=== PATIENT | female | born 1975 | race Caucasian/White ===

== ENCOUNTER 2024-07-10 09:13 | Emergency (ER) | payer BC, SELFPAY ==
[2024-07-10 09:34] VITALS: BP 176/116; PULSE 99; RESP 18; TEMP 36.6; O2SAT 98; BMI 28.2
[2024-07-10] MEDS: Tetracaine HCl/PF 0.5% Oph Sol 4 ML DROPS 1 DROP EYE-LEFT (10:15)
[2024-07-10] MEDS: Fluorescein Sodium STRIP 1 STRIP EYE-LEFT (10:15)
--- NOTE | 2024-07-10 10:15 | ED.EYEPROB ---
HPI - Eye Problem General Chief complaint: Eye Problems Stated complaint: left eye irritation Time Seen by Provider: 07/10/24 09:59 Source: patient Mode of arrival: ambulatory Limitations: no limitations History of Present Illness ED Provider: Diane Nazario PA-C HPI Narrative: 49 yo female presents to the ER for evaluation of left eye vision disturbances that started yesterday afternoon around 430pm. patient reports she was seeing what looked like a black string intermittently in various dominguez of her left eye vision when she moved her eye. it was not present when she looked forward. She took out her contact lens and it appears normal. no FB sensation. no trauma or injury. she was unable to get in with her eye doctor yesterday. she reports symptoms this morning are improved but still having some abnormalities with movement. she is wearing her glasses. no drainage, discharge or severe pain. MD chief complaint: vision change Onset (ago): hour(s) Onset description: sudden Duration: intermittent Location: left eye Eye Symptoms: decreased vision Place: home Mechanism: none Context: contact lens use Associated symptoms: headache Treatments Prior to Arrival: none Related Data Allergies Allergy/AdvReac Type Severity Reaction Status Date / Time cat dander [cats] Allergy Itchy Eyes Verified 07/10/24 09:41 Seasonal Allergies Allergy Itchy Eyes Verified 07/10/24 09:41 Review of Systems Review of Systems: Yes all other systems are reviewed and are negative [facility] Social History Social History Advance Directives: Yes Advance Directives Information Provided: No Advance Directives on File: No Do you have a plan to hurt others: No Plan Physical Exam Vital Signs: Vital Signs: Last Vital Signs Temp 97.9 F 07/10/24 11:00 Pulse 99 07/10/24 11:00 Resp 18 07/10/24 11:00 BP 176/116 H 07/10/24 11:00 Pulse Ox 98 07/10/24 11:00 O2 Del Method Room Air 07/10/24 11:00 BMI result Body Mass Index 28.2 Appearance: Alert. Oriented X3. No acute distress. HEENT: normal appearance of periorbital structures bilaterally. normal appearance of the lids. mild conjunctival injection of the left eye. mild yellowing of the conjunctiva and thickened appearance at 3 and 9 oclock which correlate to increased fluoroscene uptake in these areas. no visible ulcerations. bedside U/S showing normal retina, normal optic nerve. there are 2 punctate areas in the vitrious, no large hemorrhage. PERRLA. EOMI. IOP 14 CVS: Normal heart rate and rhythm. Pulses normal. Respiratory: No respiratory distress. Skin: Skin warm and dry. Normal skin color. Normal skin turgor. No rashes. Extremities: normal inspection x4. Neuro: Oriented X 3. No motor deficit. No sensory deficit. Medications Administered Discontinued Medications Generic Name Dose Route Start Last Admin Trade Name Zahra PRN Reason Stop Dose Admin Fluorescein Sodium 1 strip 07/10/24 09:59 07/10/24 10:15 Fluorescein Sodium Strip EYE-LEFT 07/10/24 10:00 1 strip ONCE ONE Administration Tetracaine HCl 1 drop 07/10/24 09:59 07/10/24 10:15 Tetracaine Hcl/Pf 0.5% Oph Rashmi 4 Ml Drops EYE-LEFT 07/10/24 10:00 1 drop ONCE ONE Administration Medical Decision Making Medical Decision Making MDM Narrative: 49 yo female presenting for evaluation of left eye vision changes that have been occurring intermittently with eye movement since yesterday. neurologically intact on exam. possible area of punctate vitreous hemorrhage on bedside U/S with Dr. Mckee. IOP normal. no obvious abrasion on exam recommend patient go to optometry to get full dilated exam. she is in agreement. stable for d/c with outpatient follow up with optho. Differential Diagnosis Differential Diagnoses: The differential diagnosis associated with the presentation includes retinal detachment, corneal ulcer, corneal abrasion, FB, vitrious hemorrhage Prescription Management I considered prescription management with: Antibiotic Critical Care Time Critical Care Time Critical Care Time: No Discharge Plan Discharge Clinical Impression: Alteration in vision Patient Disposition: Home, Self-Care Instructions: Blurred Vision (ED) Additional Instructions: recommend going to get your eye dilated for further evaluation today If you develop new or worsening symptoms call 911 or come back to the ER for further evaluation. Interventions: ED Discharge Assessment Last Done: 07/10/24 11:00 Discharge Date/Time: 07/10/24 11:00 Print Language: Slovak
[2024-07-10 11:00] VITALS: BP 176/116; PULSE 99; RESP 18; TEMP 36.6; O2SAT 98
== END 2024-07-10 11:00 | disposition home or self-care (01) ==
PROVIDERS: Emergency Provider Emergency Medicine; PCP Internal Medicine
DX: H53.9 Unspecified visual disturbance (principal)
CPT/HCPCS: 99282; 99283